=== PATIENT | male | born 1990 | race Caucasian/White ===

== ENCOUNTER 2020-09-01 11:11 | Emergency (ER) | payer OTHER, SELFPAY ==
[2020-09-01 11:21] VITALS: BP 138/63; PULSE 88; RESP 18; TEMP 36.7; O2SAT 100
--- NOTE | 2020-09-01 11:53 | PC.NURSE ---
Pt here c . pt reports he was drinking ETOH over the weekend, reports he was at work and felt dizzy and like I was gonna . reports he was dazed and ate his lunch and ate a candy bar. pt arrives to ED 2 c steady, even, unassisted gait. a/o x 4. speech clear. pupils perrla. able to have meaningful conversation. reports pt drinks every weekend at least a fifth of vodka . last drink 08/31/20. drove self to work this am. placed on monitor.
[2020-09-01 11:55] VITALS: BP 101/61; BP 110/67; PULSE 70; PULSE 76; PULSE 98
[2020-09-01] MEDS: SODIUM CHLORIDE 0.9% IV 1,000 ML 999 ML IV CONT (11:58)
[2020-09-01 12:10] LABS: Basophils Percent Auto 0.6 % (0.2-1.2); Eosinophils Percent Auto 0.2 % (0-4.4); Hematocrit 32.7 % (42.0-52.0); Hemoglobin 10.4 g/dL (14.0-18.0); Immature Granulocyte Absolute 0.03 K/mm3 (0.00-0.031); Immature Granulocyte Percent A 0.6 % (0-0.5); Immature Platelet Fraction Pct 7.9 % (0.9-11.2); Lymphocytes Absolute Auto 0.71 K/mm3 (0.9-3.2); Lymphocytes Percent Auto 14.2 % (18.3-44.2); Mean Corpuscular HGB Conc 31.8 g/dl (32-36); Mean Corpuscular Hemoglobin 21.2 pg (26-34); Mean Corpuscular Volume 66.6 fl (80-100); Monocytes Absolute Auto 0.3 K/mm3 (0.1-0.6); Monocytes Percent Auto 6.6 % (2.6-8.5); Neutrophils Absolute Auto 3.9 K/mm3 (1.3-6.7); Neutrophils Percent Auto 77.8 % (45.5-73.1); Nucleated Red Blood Cells Perc 0.4 % (0.0-0.2); Platelet Count Result 149 k/mm3 (150-375); Red Blood Count 4.91 M/mm3 (4.6-6.20); Red Cell Distribution Width 17.9 % (11.5-14.5)
[2020-09-01 12:13] LABS: Add Urine Microscopic? YES; Appearance Urine Clear (Clear); Bilirubin Urine Negative (Negative); Blood Urine Negative (Negative); Color Urine Yellow (Yellow); Glucose Urine UA Negative (Negative); Ketones Urine Negative (Negative); Leukocyte Esterase Ur Negative LEU/UL (Negative); Nitrate Urine Negative (Negative); Protein Urine 1+ mg/dL (Negative); RBC Urine 0-2 /hpf (0-2); Specific Grav Ur 1.019 (1.001-1.035); WBC Urine 0-3 /hpf
[2020-09-01 12:23] LABS: Alanine Aminotransferase 34 U/L (4-50); Albumin Level 4.8 g/dL (3.5-5.1); Alkaline Phosphatase 58 U/L (38-126); Anion Gap 10 mmol/L (8-16); Aspartate Amino Transferase 66 U/L (17-59); Bilirubin,Total 1.2 mg/dL (0.2-1.3); Blood Urea Nitrogen 22 mg/dL (9-20); Calcium 9.2 mg/dL (8.4-10.2); Carbon Dioxide 30 mmol/L (22-30); Chloride 100 mmol/L (98-107); Estimated CRCL calculation 111 ml/min; Estimated Glomerular Filt Rate > 60; Glucose 184 mg/dL (75-110); Potassium 4.1 mmol/L (3.4-5.0); Sodium 140 mmol/L (137-145)
--- NOTE | 2020-09-01 12:30 | ED.GENADULT ---
HPI - General Adult General Chief complaint: Unspecified Stated complaint: FEELS WEIRD AFTER ETOH LAST NIGHT Time Seen by Provider: 09/01/20 11:25 History of Present Illness HPI narrative: Patient is a 29-year-old male who presents ER after having an episode of sweating and confusion while at work. Reports he had been binge drinking over the weekend. Typically when he drinks he will finish 1/5 of alcohol over the weekend. Reports while at work he became confused and sweaty and after eating a couple candy bar she felt much better. No previous history of hypoglycemia. No history of diabetes. Patient reports she has lost a significant amount of intentional weight loss since 2017 when he weighed 270lbs, currently 146 lbs. no recent GI changes. Reports chronic constipation and takes a stool softener when he does not have a bowel movement for 5 days. Patient had no focal weakness in arm or leg. Feels well at this time. Related Data Home Medications Medication Instructions Recorded Confirmed cetirizine 10 mg capsule 10 mg PO DAILY 08/07/19 04/18/20 fluticasone propionate 50 1 spray NASAL DAILY 08/07/19 04/18/20 mcg/actuation nasal spray,suspension omeprazole 10 mg capsule,delayed 10 mg PO DAILY 08/07/19 04/18/20 release Allergies Allergy/AdvReac Type Severity Reaction Status Date / Time No Known Allergies Allergy Mild Verified 04/18/20 13:06 Review of Systems Review of Systems: All systems reviewed & are unremarkable except as noted in HPI and below Constitutional: Constitutional: Denies chills and Denies fever(s) Comments: Sweats Cardiovascular: Cardiovascular: Denies chest pain, Denies syncope and Denies rapid heart rate Gastrointestinal: Gastrointestinal: Denies abdominal pain, Reports constipation, Denies diarrhea, Denies nausea and Denies vomiting Neurologic: Reports confusion, Reports dizziness, Denies focal weakness and Denies numbness [facility] Past Medical History Medical History Beta thalassemia trait Chronic fatigue Chronic seasonal allergic rhinitis Depression GERD (gastroesophageal reflux disease) ARIELA (obstructive sleep apnea) Family History Family History Mother Family history of Hodgkin's lymphoma Social History Social History (Updated 04/18/20 @ 13:05 by Khadijah Jones Smoking status: Former smoker Alcohol intake: current Substance use: never Substance use type: does not use Gender identity (if verbalized by the patient): Male Exam Narrative: Exam Narrative: GENERAL: Well-appearing, thin, and in no acute distress. HEAD: Normocephalic, atraumatic. ENT: Mucous membranes moist. CHEST: Clear to auscultation. No respiratory distress. HEART: Regular rate and rhythm. Normal peripheral pulses. ABDOMEN: Soft, nontender, nondistended. EXTREMITIES: Normal range of motion. No edema. NEURO: Alert and oriented x3. PSYCH: Normal mood and affect. Course Course Emergency Course: Patient asymptomatic with orthostatics despite blood pressure dropping. Patient hydrated. Discussed his anemia which is chronic from his thalassemia. Discussed he should talk to his PCP about his symptoms. Encouraged him to gain a little bit more weight as he may be at a point where his glycogen stores are lower due to his chronic ketogenic diet. The patient likely experienced a episode of hypoglycemia earlier today. Vital Signs Vital signs: Vital Signs Temperature 98.1 F 09/01/20 11:21 Pulse Rate 88 09/01/20 11:21 Respiratory Rate 18 09/01/20 11:21 Blood Pressure 138/63 09/01/20 11:21 Pulse Oximetry 100 09/01/20 11:21 Temperature 98.1 F 09/01/20 11:21 Pulse Rate 98 09/01/20 11:55 Respiratory Rate 18 09/01/20 11:21 Blood Pressure 110/67 09/01/20 11:55 Pulse Oximetry 100 09/01/20 11:21 Medical Decision Making Vital Signs Vital Signs: Vital Signs
[2020-09-01 13:04] VITALS: BP 111/73; PULSE 78; RESP 20; O2SAT 100
== END 2020-09-01 13:07 | disposition home or self-care (01) ==
PROVIDERS: Emergency Provider Emergency Medicine; PCP Family Medicine
DX: R42 Dizziness and giddiness (principal); D56.3 Thalassemia minor; R53.82 Chronic fatigue, unspecified; K21.9 Gastro-esophageal reflux disease without esophagitis; G47.33 Obstructive sleep apnea (adult) (pediatric); Z87.891 Personal history of nicotine dependence
CPT/HCPCS: 36415; 80053; 81001; 85025; 85055; 96360; 99283; J7030

== ENCOUNTER 2023-05-29 13:03 | Emergency (ER) | payer OTHER, SELFPAY ==
--- NOTE | ~2023-05-29 | XR_ITS ---
XR hand LT min 3V 05/29/2023 14:19 INDICATION: Left hand pain PROCEDURE: 3 views left hand COMPARISON: No prior studies for comparison. FINDINGS: Fracture, dislocation or subluxation is not identified. The soft tissues appear within norm al limits. No foreign bodies are identified. There is a small benign-appearing osteochondroma origin ating from the ventral aspect of the distal radial metaphysis. IMPRESSION: 1: NO ACUTE BONE OR JOINT ABNORMALITY IDENTIFIED. Reviewed, dictated and finalized at location A. [facility] WORKER
[2023-05-29 13:20] VITALS: BP 127/80; PULSE 80; RESP 18; TEMP 36.6; O2SAT 98
[2023-05-29] MEDS: IBUPROFEN 400 MG TABLET 800 MG PO (14:26)
[2023-05-29] MEDS: TETANUS,DIPHTHERIA,AC PERTUSSIS ADULT (0.5 ML) BOOSTRIX IM (14:26)
[2023-05-29] MEDS: LIDOCAINE HCL 2% LOCAL INJ 20 ML VIAL INFILTRATE (14:27)
--- NOTE | 2023-05-29 15:34 | ED.WOUNDLAC ---
HPI - Wound/Laceration General Chief Complaint: Wound/Laceration Stated Complaint: L first knuckle laceration Time Seen by Provider: 05/29/23 13:45 Source: patient and RN notes reviewed Mode of arrival: ambulatory History of Present Illness HPI narrative: This is a 32 year old male right hand dominant who presents for evaluation of left index finger laceration. He states he accidentally cut his finger with drill bit. He reports no pain, denies numbness or tingling. He is unsure of his last tetanus. Related Data Home Medications Medication Instructions Recorded Confirmed No Home Medications 05/02/23 05/02/23 Allergies Allergy/AdvReac Type Severity Reaction Status Date / Time No Known Allergies Allergy Mild Verified 05/29/23 13:07 Review of Systems Review of Systems: All systems reviewed & are unremarkable except as noted in HPI and below PMFSH Past Medical History Medical History Beta thalassemia trait Chronic fatigue Chronic seasonal allergic rhinitis Depression GERD (gastroesophageal reflux disease) ARIELA (obstructive sleep apnea) Family History Family History Mother Family history of Hodgkin's lymphoma Social History Social History Smoking status: Never smoker Second hand tobacco smoke exposure: No Alcohol intake: current Substance use: never Substance use type: does not use Living arrangements: with family Occupation/Education: occupation Gender identity (if verbalized by the patient): Male Sexual Orientation (if Verbalized by the Patient): Straight or Heterosexual Exam Const: General: no acute distress and alert Nutritional Appearance: well nourished Orientation/consciousness: patient oriented x3 HENMT: Head: normal to inspection Resp: Effort & Inspection: normal respiratory effort Skin: Wounds: wounds noted (left index finger with wound to MCP dorsum 2 cm laceration, no bleeding,) Other: tendon sheath appears to be intact, Neuro: General: patient oriented x3, moves all extremities and CN's II-XI intact bilaterally Extrem: Other: left index finger laceration but movement and sensation intact Psych: Mental Status: mental status grossly normal Affect: normal affect Attitude: cooperative Course Vital Signs Vital signs: Vital Signs Temperature 97.9 F 05/29/23 13:20 Pulse Rate 80 05/29/23 13:20 Respiratory Rate 18 05/29/23 13:20 Blood Pressure 127/80 05/29/23 13:20 Pulse Oximetry 98 05/29/23 13:20 Temperature 97.5 F L 05/29/23 16:10 Pulse Rate 84 05/29/23 16:10 Respiratory Rate 18 05/29/23 16:10 Blood Pressure 122/71 05/29/23 16:10 Pulse Oximetry 100 05/29/23 16:10 Procedures Laceration Laceration 1: Date: 05/29/23 Time: 15:35 Site: hand (left index finger) Size (cm): 2 Description: linear Depth: simple, single layer Local Anesthetic: lidocaine 1% Amount of anesthesia used (mL): 2 Pre-repair: wound explored and irrigated extensively ====== Skin Level ====== Skin layer closed with: prolene Size (cm): 4-0 Number of sutures: 5 Technique: horizontal mattress ====== Subcutaneous Layer ====== ====== Muscle Layer ====== ====== Tendon Layer ====== MDM - Wound/Laceration Imaging Data Radiologist's impression: ITS Impressions Hand X-Ray 05/29/23 14:30 IMPRESSION: 1: NO ACUTE BONE OR JOINT ABNORMALITY IDENTIFIED. Discharge Plan Discharge Clinical Impression: Laceration of hand, left Qualifiers: Encounter type: initial encounter Foreign body presence: without foreign body Qualified Code(s): S61.412A - Laceration without foreign body of left hand, initial encounter Patient Disposition: Home, Self-Care
[2023-05-29 16:10] VITALS: BP 122/71; PULSE 84; RESP 18; TEMP 36.4; O2SAT 100
== END 2023-05-29 16:12 | disposition home or self-care (01) ==
PROVIDERS: Emergency Provider General Practice; PCP Family Medicine
DX: S61.211A Laceration without foreign body of left index finger without damage to nail, initial encounter (principal); Z23 Encounter for immunization; W27.8XXA Contact with other nonpowered hand tool, initial encounter
CPT/HCPCS: 12001; 73130; 90471; 90715; 99283; A9270

== ENCOUNTER 2024-04-12 12:16 | Outpatient (CLI) | payer BC, SELFPAY ==
--- NOTE | ~2024-04-12 | XR_ITS ---
Supine and upright views of the abdomen Clinical history: Abdominal pain Findings: Bowel gas pattern is nonspecific. No evidence for obstruction or free air. No abnormal mass lesion or calcification is seen. Osseous structures are intact. Impression: No significant abnormality is seen. Reviewed, dictated and finalized at [facility]. [facility] Impression: No significant abnormality is seen.
== END 2024-04-12 12:17 | disposition home or self-care (01) ==
LOC: MICIMG 12:19
PROVIDERS: PCP Family Medicine; Visit Provider Family Medicine
DX: R10.9 Unspecified abdominal pain (principal)
CPT/HCPCS: 74018